=== PATIENT | female | born 1945 | race Caucasian/White ===

== ENCOUNTER → 2020-08-31 | Outpatient (CLI) | payer OTHER ==
[~2020-08-31] MED LIST: NORCO 5-325 TA1 EACH PO; VIBRAMYCIN100 MG PO; ZOVIRAX 800 MG800 MG PO
[2020-08-31 12:37] LABS: RED BLOOD COUNT 3.95 M/UL (4.00-5.10); WHITE BLOOD COUNT 9.2 K/UL (4.5-11.0)
== END ==
LOC: LAB 11:11
PROVIDERS: Internal Medicine
DX: E79.0 Hyperuricemia without signs of inflammatory arthritis and tophaceous disease (principal); E03.9 Hypothyroidism, unspecified
CPT/HCPCS: 36415; 80053; 80061; 84439; 84443; 84550; 85025

== ENCOUNTER → 2020-09-05 | Outpatient (CLI) | payer OTHER | LOC: EXRD 15:15 | DX: N18.30 Chronic kidney disease, stage 3 unspecified (principal); N28.89 Other specified disorders of kidney and ureter | CPT/HCPCS: 76775 ==

== ENCOUNTER → 2020-10-11 | Outpatient (CLI) | payer OTHER ==
[2020-10-12 11:15] LABS: CREATININE, URINE 70.5 mg/dL (Not Estab.)
== END ==
LOC: LAB 10:19
PROVIDERS: Internal Medicine Nephrology
DX: E79.0 Hyperuricemia without signs of inflammatory arthritis and tophaceous disease (principal); N18.30 Chronic kidney disease, stage 3 unspecified
CPT/HCPCS: 36415; 80053; 81001; 82043; 82570; 84156; 84550

== ENCOUNTER → 2020-11-20 | Outpatient (CLI) | payer OTHER | LOC: LAB 10:21 | PROVIDERS: Internal Medicine | DX: R07.9 Chest pain, unspecified (principal); R91.1 Solitary pulmonary nodule; M33.20 Polymyositis, organ involvement unspecified | CPT/HCPCS: 36415; 80048; 82550; 83874 ==

== ENCOUNTER → 2021-08-30 | Outpatient (CLI) | payer OTHER ==
[2021-08-31 10:13] LABS: CREATININE, URINE 56.1 mg/dL (Not Estab.)
== END ==
LOC: LAB 12:26
PROVIDERS: Internal Medicine Nephrology
DX: N18.32 Chronic kidney disease, stage 3b (principal)
CPT/HCPCS: 36415; 80048; 81001; 82043; 82570